=== PATIENT | male | born 1950 | race Caucasian/White ===

== ENCOUNTER 2023-11-12 18:09 | Inpatient (IN) | payer OTHER ==
[~2023-11-12] VITALS: Ht 172.7 cm; Wt 55.3 kg
[2023-11-12 22:00] VITALS: BP 151/86; PULSE 103; RESP 18; TEMP 98; O2SAT 90
[2023-11-12] MEDS ORDERED: ACETAMINOPHEN 325 MG TAB PO PRN (22:30)
[2023-11-12] MEDS ORDERED: ONDANSETRON HCL 4 MG/2 ML VIAL IV PRN (22:30)
[2023-11-12] MEDS ORDERED: MORPHINE SULFATE INJ 2 MG/ml SYRG IV PRN (22:30)
[2023-11-12 22:42] VITALS: BP 136/66; PULSE 88; RESP 22; TEMP 97.7; O2SAT 94
[2023-11-12] MEDS ORDERED: IBUP-1456 PO (23:53)
[2023-11-12] MEDS ORDERED: PANT40TA2 PO (23:55)
[2023-11-12] MEDS ORDERED: FERR-7 PO (23:56)
[2023-11-12] MEDS ORDERED: TRAM50TA2 PO (23:57)
[2023-11-12] MEDS ORDERED: PSYL0.524 PO (23:59)
[2023-11-13] MEDS: HYDROcodone-ACET 5/325MG TAB PO PRN ×2 (02:01→19:42)
[2023-11-13 05:00] VITALS: BP 133/73; PULSE 93; RESP 18; TEMP 97.7; O2SAT 93
[2023-11-13 06:53] LABS: Basophils # (auto) 0 10 ^3/uL (0-0.2); Eosinophils # (auto) 0 10 ^3/uL (0-0.8); Monocytes # (auto) 0.1 10 ^3/uL (0-1.3); Neutrophils # (auto) 4.9 10 ^3/uL (1.6-8.6); Red Blood Cells 3.67 10^6/uL (4.5-5.90)
[2023-11-13 06:57] LABS: Basophils % (auto) 0.6 % (0.0-2.0); Eosinophils % (auto) 0.4 % (0.0-7.0); Hematocrit 23.9 % (41.0-53.0); Hemoglobin 7.3 g/dL (13.5-17.5); Lymphocytes # (auto) 0.5 10 ^3/uL (0.4-5.4); Lymphocytes % (auto) 8.3 % (10.0-50.0); Mean Corpuscular Hemoglobin 19.8 pg (28.0-32.0); Mean Corpuscular Hgb Conc. 30.5 g/dL (32.0-36.0); Mean Corpuscular Volume 65.1 fL (80.0-100.0); Monocytes % (auto) 2.4 % (0.0-12.0); Neutrophils % (auto) 88.3 % (37.0-80.0); Red Cell Distribution Width 18.8 % (11.8-14.3); White Blood Cell 5.6 10^3/uL (4.4-10.8)
[2023-11-13 07:02] LABS: Anion Gap 5 (5-15); Carbon Dioxide 24 mmol/L (20-30); Chloride 98 mmol/L (98-107); Potassium 3.8 mmol/L (3.5-5.1); Sodium 127 mmol/L (136-145)
[2023-11-13 07:03] LABS: Calcium 7.8 mg/dL (8.7-10.4)
[2023-11-13 07:08] LABS: BUN/Creatinine Ratio 27.9 (10.0-20.0); Blood Urea Nitrogen 12 mg/dL (9-23); Glucose 87 mg/dL (74-106)
[2023-11-13 09:31] VITALS: BP 150/94; PULSE 96; RESP 16; TEMP 98.3; O2SAT 95
[2023-11-13] MEDS: PANTOPRAZOLE 40 MG/10 ML VIAL INJ IV SCH (09:57)
[2023-11-13] MEDS: ENOXAPARIN SOD 40 MG/0.4 ML SYRINGE SC SCH (09:57)
[2023-11-13] MEDS: levoFLOXacin 500MG 100 ML IV SCH (09:57)
[2023-11-13 12:59] VITALS: BP 128/85; PULSE 66; RESP 16; TEMP 98.1; O2SAT 93
[2023-11-13 16:49] VITALS: BP 149/84; PULSE 90; RESP 16; TEMP 98.4; O2SAT 95
[2023-11-13 20:00] VITALS: PULSE 98; RESP 21; O2SAT 94
[2023-11-13 22:00] VITALS: BP 141/81; PULSE 98; RESP 21; TEMP 98.1; O2SAT 94
[2023-11-14 05:38] VITALS: BP 148/76; PULSE 87; RESP 16; TEMP 98.3; O2SAT 97
[2023-11-14 09:00] VITALS: BP 137/77; PULSE 86; RESP 18; TEMP 98.1; O2SAT 98
[2023-11-14] MEDS: levoFLOXacin 500MG 100 ML IV SCH (10:37)
[2023-11-14] MEDS: PANTOPRAZOLE 40 MG/10 ML VIAL INJ IV SCH (10:37)
[2023-11-14] MEDS: ENOXAPARIN SOD 40 MG/0.4 ML SYRINGE SC SCH (10:38)
[2023-11-14 13:00] VITALS: BP 145/83; PULSE 89; RESP 17; TEMP 98.8; O2SAT 91
[2023-11-14] MEDS ORDERED: AUG875T PO (13:42)
[2023-11-14 17:00] VITALS: BP 142/82; PULSE 62; RESP 12; TEMP 98.1; O2SAT 92
[2023-11-15 08:39] LABS: Hepatitis B Surface Antigen Negative (Negative)
[2023-11-15 09:01] LABS: Hepatitis C Antibody Negative (Negative)
== END 2023-11-14 18:45 | disposition home health service (06) | DRG 205 ==
LOC: UNDOADMIN 22:17 → EAST 22:17
PROVIDERS: ADMIT Internal Medicine; ATTEND Internal Medicine
DX: S22.32XA Fracture of one rib, left side, initial encounter for closed fracture (principal); J18.9 Pneumonia, unspecified organism; S32.9XXA Fracture of unspecified parts of lumbosacral spine and pelvis, initial encounter for closed fracture; S42.002A Fracture of unspecified part of left clavicle, initial encounter for closed fracture; E87.1 Hypo-osmolality and hyponatremia; J44.0 Chronic obstructive pulmonary disease with (acute) lower respiratory infection; J98.11 Atelectasis; L89.159 Pressure ulcer of sacral region, unspecified stage; M06.9 Rheumatoid arthritis, unspecified; J43.8 Other emphysema; W01.0XXA Fall on same level from slipping, tripping and stumbling without subsequent striking against object, initial encounter; L89.219 Pressure ulcer of right hip, unspecified stage; L89.899 Pressure ulcer of other site, unspecified stage; Z87.11 Personal history of peptic ulcer disease; Y93.89 Activity, other specified; Y92.89 Other specified places as the place of occurrence of the external cause; Y99.8 Other external cause status
CPT/HCPCS: 36415; 80048; 85025; 86803; 87040; 87340; 97110; 97116; 97163; 97530; C9113; G0378; J1956